=== PATIENT | male | born 1990 | race African-American/Black ===

== ENCOUNTER 2018-11-07 18:35 | Emergency (ER) | payer OTHER ==
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
== END 2018-11-07 20:48 | disposition home or self-care (01) ==
LOC: JD.ED 18:35
DX: F41.0 Panic disorder [episodic paroxysmal anxiety] (principal)
CPT/HCPCS: 99283

== ENCOUNTER 2021-07-19 21:20 | Emergency (ER) | payer OTHER ==
--- NOTE | 2021-07-19 21:52 | EDM.PDOC ---
ED HPI GENERAL MEDICAL PROBLEM - General Chief Complaint: Lower Extremity Injury/Pain Stated Complaint: INJURED LEFT LEG Time Seen by Provider: 07/19/21 21:36 Source of Information: Reports: Patient, RN Notes Reviewed History Limitations: Reports: No Limitations - History of Present Illness INITIAL COMMENTS - FREE TEXT/NARRATIVE: Patient is a 30-year-old male who presents to the ER for a left heel/ankle injury. Patient was playing flag football earlier tonight, when he went to take off from the line, felt a pop in his left heel/posterior ankle area, and was not able to bear weight after this. States he cannot plantarflex his foot, he can dorsiflex a small amount, and can wiggle his toes with little difficulty but states any sort of movement much at the heel at all causes quite a bit of pain. This is tender to the touch as well. He did not take any sort of pain medicine prior to coming to the ER. Patient is denying any numbness or tingling in the foot. Patient denies any other sick-like symptoms, fever/chills, cough/shortness of breath, nausea/vomiting/diarrhea. Left Lower Leg Pain Score (Numeric/FACES): 6 - Related Data Allergies Allergy/AdvReac Type Severity Reaction Status Date / Time No Known Allergies Allergy Verified 11/07/18 18:43 Home Meds: Home Meds hydrOXYzine HCL [Atarax] 25 - 50 mg PO BEDTIME PRN #15 tab 11/07/18 [Rx] Acetaminophen/oxyCODONE [Percocet 325-5 MG] 1 tab PO Q6H PRN #20 tab 07/19/21 [Rx] Past Medical History - Past Health History Medical/Surgical History: Denies Medical/Surgical History Social & Family History - Caffeine Use Caffeine Use: Reports: Coffee, Tea Review of Systems - Review of Systems Review Of Systems: Comprehensive ROS is negative, except as noted in HPI. ED EXAM, GENERAL - Physical Exam Exam: See Below Exam Limited By: No Limitations General Appearance: Alert, WD/WN, No Apparent Distress Respiratory/Chest: No Respiratory Distress, Lungs Clear, Normal Breath Sounds, No Accessory Muscle Use, Chest Non-Tender Cardiovascular: Normal Peripheral Pulses, Regular Rate, Rhythm, No Edema Peripheral Pulses: 2+: Dorsalis Pedis (L), Dorsalis Pedis (R) Extremities: Normal Inspection, Normal Capillary Refill, Limited Range of Motion (of left ankle, cannot plantarflex at left ankle, dorsiflxion is minimal, heel/achilles area and into calf are tender to the touch.) Neurological: Alert, Oriented, Normal Cognition Psychiatric: Normal Affect, Normal Mood Skin Exam: Warm, Dry, Intact, Normal Color, No Rash Course - Vital Signs Last Recorded V/S: Last Vital Signs Temp 97.1 F 07/19/21 21:30 Pulse 86 07/19/21 21:30 Resp 20 07/19/21 21:30 BP 149/96 H 07/19/21 21:30 Pulse Ox 99 07/19/21 21:30 - Orders/Labs/Meds Orders: Active Orders 24 hr Category Date Time Status Ankle Min 3V Lt [CR] Stat Exams 07/19/21 21:37 Ordered DME for Discharge [COMM] Routine Oth 07/19/21 21:48 Ordered Meds: Medications Discontinued Medications Generic Name Dose Route Start Last Admin Trade Name Freq PRN Reason Stop Dose Admin Oxycodone/Acetaminophen 2 tab 07/19/21 22:05 Acetaminophen/Oxycodone 325-5 Mg Tab PO 07/19/21 22:06 ONETIME ONE - Re-Assessments/Exams Free Text/Narrative Re-Assessment/Exam: 07/19/21 21:47 Patient presents to the ER for evaluation of his left ankle injury. I do highly suspect he has ruptured some tendons, as he is not able to plantarflex his left foot at all no matter how much he tries. His dorsiflexion is very minimal at best effort. Will get x-rays for initial management, will get his foot immobilized with a walking boot and keep him nonweightbearing with crutches and have him follow-up with orthopedics. We will have him call tomorrow to Dr. Atkins's office to see about when he can be evaluated. 07/19/21 21:52 X-rays were reviewed by myself and Dr. Caceres, I do see an area of suspected fracture at distal fibula. Patient will be placed in a walking boot, to stabilize and prevent further injury to the left ankle. He will be given crutc hes to remain nonweightbearing. 07/19/21 22:06 The patient states that he has crutches at home, so we will place him into a walking boot, his significant other will wheel him to the car and then she will grab the crutches from home in order for him to get in the house. Departure - Departure Time of Disposition: 21:53 Disposition: Home, Self-Care 01 Condition: Good Clinical Impression: Achilles tendon rupture Qualifiers: Encounter type: initial encounter Laterality: left Qualified Code(s): S86.012A - Strain of left Achilles tendon, initial encounter Fracture of distal fibula Qualifiers: Encounter type: initial encounter Fracture type: closed Fracture morphology: other fracture Laterality: left Qualified Code(s): S82.832A - Other fracture of upper and lower end of left fibula, initial encounter for closed fracture - Discharge Information *PRESCRIPTION DRUG MONITORING PROGRAM REVIEWED*: No *COPY OF PRESCRIPTION DRUG MONITORING REPORT IN PATIENT BARON: No Prescriptions: Acetaminophen/oxyCODONE [Percocet 325-5 MG] 1 tab PO Q6H PRN #20 tab PRN Reason: Pain Instructions: Nondisplaced Fibular Ankle Fracture Treated With Immobilization, Achilles Tendon Tear Repair Referrals: Meño Atkins MD [Physician] - (either friday07/20/21 or friday07/23/21) Forms: ED Department Discharge, ED Return to Work/School Form Additional Instructions: You have been evaluated in the ED for your left ankle injury. Your x-ray demonstrated a possible fracture of your distal left fibula. Your clinical exam was suspicious for possible Achilles tendon rupture. You have been provided with a walking boot to prevent further injury and/or stabilize the injury you received today. You indicated that you already have crutches at home. You will need to use these when you get home, and remain nonweightbearing on the extremity until you can be evaluated by orthopedics. Please use ice as tolerated to the affected area. You may elevate the affected area to provide further relief from swelling. You may take Tylenol 500 mg or ibuprofen 600mg q6 hrs for pain relief. Please do so until you have a tolerable level of pain with activity. Do not exceed 4000mg Tylenol, Do not exceed 3200mg ibuprofen in a 24 hour time period. You were given a prescription for a strong pain medication, oxycodone/acetaminophen 5/325, please take 1 tab every 6 hours as needed for pain not relieved by Tylenol or ibuprofen alone. Please note this does contain Tylenol in it, so do not take more than 4000 mg in a 24-hour time span. These medications can be addictive, so please take as few as possible to achieve adequate pain control. These meds can also be quite constipating, recommend that you increase your oral fluid intake and take a stool softener like MiraLAX while taking these medications. This medication was electronically sent to the [place] pharmacy located in the [employer] store. Please call Ortho for follow-up and further evaluation Dr. Atkins is our orthopedic surgeon, his office number is [phone]. Please call and set up an appointment as soon as possible for further management. Please return to ED if your symptoms should change or worsen. Sepsis Event Note (ED) - Focused Exam Vital Signs: Vital Signs Temp Pulse Resp BP Pulse Ox 07/19/21 21:30 97.1 F 86 20 149/96 H 99 - My Orders Last 24 Hours: My Active Orders 07/19/21 21:37 Ankle Min 3V Lt [CR] Stat 07/19/21 21:48 DME for Discharge [COMM] Routine - Assessment/Plan Last 24 Hours: My Active Orders 07/19/21 21:37 Ankle Min 3V Lt [CR] Stat 07/19/21 21:48 DME for Discharge [COMM] Routine
[2021-07-19] MEDS ORDERED: Acetaminophen/oxyCODONE 325-5 MG Tab PO ONE (22:05)
--- NOTE | 2021-07-20 06:53 | CR ---
Left ankle: 4 views of the left ankle were obtained. Comparison: No prior ankle study is available. Ankle mortise is symmetric. No fracture, dislocation or other bony abnormality is appreciated. Impression: 1. Nothing acute is seen on left ankle exam. Diagnostic code #1
== END 2021-07-19 22:34 | disposition home or self-care (01) ==
LOC: JD.ED 21:20
DX: S82.832A Other fracture of upper and lower end of left fibula, initial encounter for closed fracture (principal); S86.012A Strain of left Achilles tendon, initial encounter; X58.XXXA Exposure to other specified factors, initial encounter; Y93.62 Activity, american flag or touch football
CPT/HCPCS: 73610; 99283; A9270